=== PATIENT | male | born 1990 | race African-American/Black ===

== ENCOUNTER 2017-02-25 08:29 | Emergency (ER) | payer SELFPAY ==
[~2017-02-25] VITALS: Ht 167.6 cm; Wt 95.3 kg
[~2017-02-25 08:29] MED LIST: HYDR-971 PO; ONDA4TAB10 SL; SULF1TAB24 PO; TRAM-48 PO
[2017-02-25 08:30] VITALS: BP 148/93
[2017-02-25] MEDS ORDERED: NAPR500T8 PO (08:50)
[2017-02-25] MEDS ORDERED: CYCL10TA2 PO (08:50)
[2017-02-25] MEDS ORDERED: METH4TAB2 PO (08:50)
--- NOTE | 2017-02-25 08:50 | PHYS DOC ---
Past Medical History Past Medical History: Asthma Additional Past Medical Histor: GASTRITIS Past Surgical History: Other Additional Past Surgical Histo: ABDOMINAL BIOPSY Alcohol Use: Occasionally Drug Use: Marijuana Adult General Chief Complaint Chief Complaint: Neck Pain HPI HPI Patient is a 26 year old male with history of asthma who presents today with moderate right lateral neck pain radiating to his shoulder that began this morning when he got up. Patient denies any trauma. Patient states the pain is worse when he moves his neck to the right side. Review of Systems Review of Systems Constitutional: Denies fever or chills [] Eyes: Denies change in visual acuity, redness, or eye pain [] HENT: Denies nasal congestion or sore throat [] Respiratory: Denies cough or shortness of breath [] Cardiovascular: No additional information not addressed in HPI [] GI: Denies abdominal pain, nausea, vomiting, bloody stools or diarrhea [] : Denies dysuria or hematuria [] Musculoskeletal: right lateral neck pain Integument: Denies rash or skin lesions [] Neurologic: Denies headache, focal weakness or sensory changes [] Endocrine: Denies polyuria or polydipsia [] Allergies Allergies Allergies Coded Allergies Type Severity Reaction Last Updated Verified azithromycin Allergy Mild dizziness 06/20/15 No Physical Exam Physical Exam Constitutional: Well developed, well nourished, no acute distress, non-toxic appearance. [] HENT: Normocephalic, atraumatic, bilateral external ears normal, oropharynx moist, no oral exudates, nose normal. [] Eyes: PERRLA, EOMI, conjunctiva normal, no discharge. [] Neck: Normal range of motion, mild paraspinal muscle tenderness to the right lateral cervical spine, no midline cervical spine tenderness, supple, no stridor. [] Cardiovascular:Heart rate regular rhythm, no murmur [] Lungs & Thorax: Bilateral breath sounds clear to auscultation [] Abdomen: Bowel sounds normal, soft, no tenderness, no masses, no pulsatile masses. [] Skin: Warm, dry, no erythema, no rash. [] Back: No tenderness, no CVA tenderness. [] Extremities: No tenderness, no cyanosis, no clubbing, ROM intact, no edema. [] Neurologic: Alert and oriented X 3, normal motor function, normal sensory function, no focal deficits noted. [] Psychologic: Affect normal, judgement normal, mood normal. [] Current Patient Data Vital Signs Vital Signs Date Time Temp Pulse Resp B/P (MAP) Pulse Ox O2 Delivery O2 Flow Rate FiO2 02/25/17 08:30 98.3 83 16 98 Room Air 98.3 EKG EKG [] Radiology/Procedures Radiology/Procedures [] Course & Med Decision Making Course & Med Decision Making Pertinent Labs and Imaging studies reviewed. (See chart for details) Patient is in the ED with symptoms consistent with torticollis. Discharged with naproxen and Flexeril and Medrol Dosepak. Provided PCP for follow-up in one to 2 weeks. Recommended heat to his neck. Dragon Disclaimer Dragon Disclaimer This electronic medical record was generated, in whole or in part, using a voice recognition dictation system. Departure Departure Impression: Primary Impression: Torticollis, acute Disposition: 01 HOME, SELF-CARE Condition: STABLE Referrals: ARNAUD HAMMOND (PCP) follow up with your doctor in one to two weeks Patient Instructions: Torticollis, Acute Additional Instructions: You were seen for torticollis which occurs when people wake up and they can not move the neck to one side due to pain. Consider applying warm packs to her neck. Take the neck through full range of motion as tolerated. Take the prescribed medicines as ordered. Follow-up with your own doctor in 1-2 weeks. Scripts Methylprednisolone (MEDROL) 4 Mg Tab.ds.pk 1 PKG PO UD, #1 PKG Prov: FERNANDO AQUINO APRN 02/25/17 Naproxen (NAPROXEN) 500 Mg Tablet.dr 1 TAB PO BID, #60 TAB 1 Refill Prov: FERNANDO AQUINO APRN 02/25/17 Cyclobenzaprine Hcl (CYCLOBENZAPRINE HCL) 10 Mg Tablet 1 TAB PO TID, #30 TAB Prov: FERNANDO AQUINO APRN 02/25/17 FERNANDO AQUINO APRN Feb 25, 2017 08:50
[2017-02-25] MEDS ORDERED: KETOROLAC TROMETHAMINE 60 MG/2 ML INJ. IM ONE (09:00)
[2017-02-25] MEDS ORDERED: diazePAM 5 MG TABLET PO ONE (09:00)
[2017-02-25] MEDS ORDERED: predniSONE 20 MG TABLET PO ONE (09:00)
== END 2017-02-25 09:00 | disposition home or self-care (01) ==
LOC: ER 08:29
DX: M43.6 Torticollis (principal); J45.909 Unspecified asthma, uncomplicated; F12.10 Cannabis abuse, uncomplicated; Z88.1 Allergy status to other antibiotic agents
CPT/HCPCS: 96372; 99283; J1885; J7512

== ENCOUNTER 2017-08-18 17:00 | Emergency (ER) | payer SELFPAY ==
[2017-08-18] MEDS: LIDOCAINE 1% PF 2 ML VIAL. INJ (19:05)
[2017-08-18] MEDS: cefTRIAXone IM 1 GM VIAL IM (19:05)
== END 2017-08-18 19:00 | disposition home or self-care (01) ==
LOC: ER 17:00
DX: L02.412 Cutaneous abscess of left axilla (principal); L02.411 Cutaneous abscess of right axilla; F12.10 Cannabis abuse, uncomplicated; J45.909 Unspecified asthma, uncomplicated; Z88.1 Allergy status to other antibiotic agents
CPT/HCPCS: 10061; 96372; 99284-25; J0696

== ENCOUNTER 2017-12-07 15:26 | Emergency (ER) | payer SELFPAY ==
[2017-12-07] MEDS: HYDROcodone/APAP 5/325MG 1 TAB TABLET PO (16:00)
== END 2017-12-07 16:49 | disposition home or self-care (01) ==
LOC: ER 16:49
DX: L02.416 Cutaneous abscess of left lower limb (principal); J45.909 Unspecified asthma, uncomplicated; F12.10 Cannabis abuse, uncomplicated; Z79.891 Long term (current) use of opiate analgesic; Z88.1 Allergy status to other antibiotic agents
CPT/HCPCS: 99283

== ENCOUNTER 2018-03-20 13:23 | Emergency (ER) | payer OTHER ==
[~2018-03-20] VITALS: Ht 167.6 cm; Wt 96.2 kg
[~2018-03-20 13:23] MED LIST changes: +CEPH500C PO; +CYCL10TA2 PO; +IBUP-1060 PO; +METH4TAB2 PO; +NAPR500T8 PO
[2018-03-20 13:54] VITALS: BP 132/79
[2018-03-20] MEDS ORDERED: SULF1TAB24 PO (14:10)
--- NOTE | 2018-03-20 14:10 | PHYS DOC ---
Past Medical History Past Medical History: No Pertinent History, Asthma Additional Past Medical Histor: GASTRITIS Past Surgical History: Other Additional Past Surgical Histo: ABDOMINAL BIOPSY Alcohol Use: Heavy Drug Use: Marijuana Adult General Chief Complaint Chief Complaint: SKIN PROBLEM HPI HPI Patient is a 27 year old male who presents with chronic ingrown hair abscess is in bilateral axillaries. 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 Patient states that the cyst under his right armpit has been hair and draining pus 6 months. Patient denies any fevers. Patient states that he now has some right pain that hurts with movement of his arm and when he pushes on his chest and states it feels like a bruise. Patient states that the chest has been like that for the last couple days and states that he was doing some heavy lifting couple days ago. Patient denies injury. Patient does state that his a history of asthma also and has some shortness of air when she was taking his inhaler but the inhaler didn't work. Patient rates his pain 7 out of 10. It is nonradiating. Patient states he' s been taking ibuprofen for pain and it seems to be helping. Review of Systems Review of Systems Constitutional: Denies fever or chills [] Eyes: Denies change in visual acuity, redness, or eye pain [] HENT: Denies nasal congestion or sore throat [] Respiratory: Denies cough. Slight shortness of breath. [] Cardiovascular: Reproducible chest pain on right chest that is nonradiating.[] GI: Denies abdominal pain, nausea, vomiting, bloody stools or diarrhea [] : Denies dysuria or hematuria [] Musculoskeletal: Denies back pain or joint pain [] Integument: Denies rash or skin lesions. Right axillary abscess that is draining purulent drainage x 6 months. [] Neurologic: Denies headache, focal weakness or sensory changes [] All other systems were reviewed and found to be within normal limits, except as documented in this note. Allergies Allergies Allergies Coded Allergies Type Severity Reaction Last Updated Verified azithromycin Adverse Reaction Intermediate dizziness 08/18/17 No Physical Exam Physical Exam Constitutional: Well developed, well nourished, no acute distress, non-toxic appearance. [] HENT: Normocephalic, atraumatic, bilateral external ears normal, oropharynx moist, no oral exudates, nose normal. [] Eyes: PERRLA, EOMI, conjunctiva normal, no discharge. [] Neck: Normal range of motion, no tenderness, supple, no stridor. [] Cardiovascular:Heart rate regular rhythm, no murmur. Right chest pain that is reproducible with palpation and movement of the arm. [] Lungs & Thorax: Bilateral breath sounds clear to auscultation [] Abdomen: Bowel sounds normal, soft, no tenderness, no masses, no pulsatile masses. [] Skin: Warm, dry, no erythema, no rash. Right axillary abscess that is draining purulent fluid. [] Back: No tenderness, no CVA tenderness. [] Extremities: No tenderness, no cyanosis, no clubbing, ROM intact, no edema. [] Neurologic: Alert and oriented X 3, normal motor function, normal sensory function, no focal deficits noted. [] Psychologic: Affect normal, judgement normal, mood normal. [] Current Patient Data Vital Signs Vital Signs Date Time Temp Pulse Resp B/P (MAP) Pulse Ox O2 Delivery O2 Flow Rate FiO2 03/20/18 13:54 98.7 87 14 132/79 (96) 98 Room Air 98.7 EKG EKG Sinus rhythm, no STEMI. Read by Dr Collazo[] Radiology/Procedures Radiology/Procedures Chest x ray[] Impressions: [facility] [address] [facility] [place] [address] IMAGING REPORT Signed PATIENT: MAI MAR ACCOUNT: [id number] : 1990 LOCATION: ER AGE: 27 SEX: M EXAM STATUS: REG ER ORD. PHYSICIAN: KEYONNA ROMAN APRN REASON: Chest pain PROCEDURE: CHEST PA & LATERAL CHEST PA LATERAL Clinical indications: CHEST PAIN,STARTED YESTERDAY COMPARISON: June 20, 2015. Findings: No acute lung infiltrate or pleural effusion or pulmonary edema or lung mass or pneumothorax is seen. The heart size, pulmonary vasculature, mediastinum and both la are unremarkable. The osseous structures appear intact. Impression: No acute radiographic abnormality is seen. Electronically signed by: Ken Ramirez MD (03/20/2018 2:28 PM) [facility] [place] DICTATED and SIGNED BY: KEN RAMIREZ MD DATE: 03/20/18 1427 Course & Med Decision Making Course & Med Decision Making Upon examination patient has a grape sized swollen red, tender area in right axillary. The abscess is draining Purulent fluid. Patient states that this abscess has been coming and going for the last 6 months. Patient also complains of right nonradiating chest pain that is reproducible upon palpation and movement of right arm. Patient states that it feels like a bruise. Patient states that he has recently done some heavy lifting a couple days ago in this may be from that. Patient states that he does have some shortness of air he knows to couple days ago and started taking his albuterol inhaler but doesn't seem to help. Patient is in no respiratory distress and his lungs are clear to auscultation. At chest x-ray shows no acute findings. Patient's EKG is sinus rhythm with no STEMI and read by Dr. Collazo. Patient states he just recently got back his health insurance and is given follow-up with soft sugar supervisor that he has only seen for these abscesses. Patient is given a prescription for Bactrim and states that he is going to take ibuprofen for pain. Patient to follow-up with his soft sugar supervisor soon as possible. Staff Physician Addendum: I was working in the ER during the course of this patient's visit. I was available for consultation as needed, and did provide the initial EKG interpretation, but I was not directly involved in the care of this patient. Annamarie Collazo DO Staff Physician [] Sharifa Disclaimer Dragon Disclaimer This electronic medical record was generated, in whole or in part, using a voice recognition dictation system. Departure Departure Impression: Primary Impression: Abscess Additional Impression: Abscess of axilla, right Disposition: 01 HOME, SELF-CARE Condition: STABLE Referrals: LORI RAMOS (PCP) Patient Instructions: Abscess Scripts Sulfamethoxazole/Trimethoprim (BACTRIM DS TABLET) 1 Each Tablet 1 TAB PO BID, #14 TAB Prov: KEYONNA ROMAN APRN 03/20/18 Problem Qualifiers KEYONNA ROMAN APRN Mar 20, 2018 14:10 ANNAMARIE COLLAZO DO Mar 21, 2018 06:26
--- NOTE | 2018-03-20 14:23 | EKG ---
[facility] [address] [place] [address] Test Date: 2018-03-20 Test Time: 14:19:10 Pat Name: MAI MAR Department: Room: Gender: [employer]: : 1990 Requested By: KEYONNA ROMAN Order Number: [id number] Reading MD: Axel Hunt MD Measurements Intervals Star Rate: 80 P: 0 SC: 110 QRS: 10 QRSD: 136 T: 16 QT: 380 QTc: 441 Interpretive Statements SINUS RHYTHM RBBB Electronically Signed On 03-22-2018 10:03:32 CDT by Axel Hunt MD
--- NOTE | 2018-03-20 14:32 | RAD ---
CHEST PA LATERAL Clinical indications: CHEST PAIN,STARTED YESTERDAY COMPARISON: June 20, 2015. Findings: No acute lung infiltrate or pleural effusion or pulmonary edema or lung mass or pneumothorax is seen. The heart size, pulmonary vasculature, mediastinum and both la are unremarkable. The osseous structures appear intact. Impression: No acute radiographic abnormality is seen. Electronically signed by: Sin Ramirez MD (03/20/2018 2:28 PM) [facility] [place]
== END 2018-03-20 14:46 | disposition home or self-care (01) ==
LOC: ER 13:23
DX: L02.412 Cutaneous abscess of left axilla (principal); L02.411 Cutaneous abscess of right axilla; R07.89 Other chest pain; R06.02 Shortness of breath; F10.20 Alcohol dependence, uncomplicated; J45.909 Unspecified asthma, uncomplicated; Y90.9 Presence of alcohol in blood, level not specified; Z88.1 Allergy status to other antibiotic agents
CPT/HCPCS: 71046; 93005; 99284-25

== ENCOUNTER 2019-06-17 15:52 | Emergency (ER) | payer OTHER ==
[~2019-06-17] VITALS: Ht 167.6 cm; Wt 90.7 kg
[~2019-06-17 15:52] MED LIST changes: +DOCU100C28 PO; +HYDR-3164 PO; -HYDR-971 PO; +HYDR30CR61 TP
[2019-06-17 16:55] VITALS: BP 130/86
--- NOTE | 2019-06-17 17:01 | PHYS DOC ---
Past Medical History Past Medical History: Asthma Additional Past Medical Histor: GASTRITIS Past Surgical History: Other Additional Past Surgical Histo: ABDOMINAL BIOPSY Alcohol Use: Heavy Drug Use: Marijuana Adult General Chief Complaint Chief Complaint: Neck Pain HPI HPI Patient is a 29 year old male patient who presents to the ED today complaining of mild chronic upper neck and mid back pain as well as mild right forehead pain that began this morning. Patient denies any trauma. He states the pain in the neck is worse on range of motion. He states he has an appointment with his own PCP next week on Thursday. He states he cannot wait until then to get some help w ith his pain. Denies any photophobia, denies any nausea, vomiting. Review of Systems Review of Systems Constitutional: Denies fever or chills [] Eyes: Denies change in visual acuity, redness, or eye pain [] HENT: Denies nasal congestion or sore throat [] Respiratory: Denies cough or shortness of breath [] Cardiovascular: No additional information not addressed in HPI [] GI: Denies abdominal pain, nausea, vomiting, bloody stools or diarrhea [] : Denies dysuria or hematuria [] Musculoskeletal: Reports neck and mid back pain-chronic Integument: Denies rash or skin lesions [] Neurologic: Reports headache, denies focal weakness or sensory changes [] All other systems were reviewed and found to be within normal limits, except as documented in this note. Allergies Allergies Allergies Coded Allergies Type Severity Reaction Last Updated Verified azithromycin Adverse Reaction Intermediate dizziness 08/18/17 No Physical Exam Physical Exam Constitutional: Well developed, well nourished, no acute distress, non-toxic appearance. [] HENT: Normocephalic, atraumatic, bilateral external ears normal, oropharynx moist, no oral exudates, nose normal. [] Eyes: PERRLA, EOMI, conjunctiva normal, no discharge. [] Neck: Normal range of motion, no tenderness, supple, no stridor. [] Cardiovascular:Heart rate regular rhythm, no murmur [] Lungs & Thorax: Bilateral breath sounds clear to auscultation [] Abdomen: Bowel sounds normal, soft, no tenderness, no masses, no pulsatile masses. [] Skin: Warm, dry, no erythema, no rash. [] Back: No tenderness, no CVA tenderness. [] Extremities: No tenderness, no cyanosis, no clubbing, ROM intact, no edema. [] Neurologic: Alert and oriented X 3, normal motor function, normal sensory function, no focal deficits noted. Cranial nerves II through XII intact Psychologic: Affect normal, judgement normal, mood normal. [] Current Patient Data Vital Signs Vital Signs Date Time Temp Pulse Resp B/P (MAP) Pulse Ox O2 Delivery O2 Flow Rate FiO2 06/17/19 16:55 98.5 80 16 130/86 (101) 98 Room Air 98.5 EKG EKG [] Radiology/Procedures Radiology/Procedures [] Course & Med Decision Making Course & Med Decision Making Pertinent Labs and Imaging studies reviewed. (See chart for details) This is a 29-year-old male patient presented to the ED today with neck pain and upper back pain chronic in nature as well as a headache. Patient's neurological exam is intact. Was discharged to home. He has an appointment with his own doctor next week. Dragon Disclaimer Dragon Disclaimer This electronic medical record was generated, in whole or in part, using a voice recognition dictation system. Departure Departure Impression: Primary Impression: Chronic neck pain Additional Impressions: Headache Back pain Disposition: HOME, SELF-CARE Condition: STABLE Referrals: ARNAUD HAMMOND (PCP) follow up next week Patient Instructions: Back Pain, Adult, [id number], Headache, FAQs Additional Instructions: You were evaluated in the emergency room for headache, neck pain and back pain. Take the prescribed medications as ordered. Follow-up with your doctor next week as scheduled Scripts Diclofenac Sodium (DICLOFENAC SODIUM) 50 Mg Tablet. 1 TAB PO BID, #20 TAB 0 Refills Prov: FERNANDO AQUINO APRN 06/17/19 Hydrocodone/Apap 5-325 (NORCO 5-325 TABLET) 1 Each Tablet 1 TAB PO Q6HRS, #12 TAB Prov: FERNANDO AQUINO APRN 06/17/19 Cyclobenzaprine Hcl (CYCLOBENZAPRINE HCL) 10 Mg Tablet 1 TAB PO TID, #30 TAB Prov: FERNANDO AQUINO APRN 06/17/19 Methylprednisolone (MEDROL) 4 Mg Tab.ds.pk 1 PKG PO UD, #1 PKG Prov: FERNANDO AQUINO APRN 06/17/19 Problem Qualifiers Additional Impressions: Headache Headache type: unspecified Headache chronicity pattern: unspecified p attern Intractability: not intractable Qualified Codes: R51 - Headache Back pain Back pain location: thoracic back pain Chronicity: chronic Back pain l aterality: bilateral Qualified Codes: M54.6 - Pain in thoracic spine; G89.29 - Other chronic pain FERNANDO AQUINO APRN Jun 17, 2019 17:01
[2019-06-17] MEDS ORDERED: METH4TAB2 PO (17:09)
[2019-06-17] MEDS ORDERED: DICL50TA4 PO (17:09)
[2019-06-17] MEDS ORDERED: CYCL10TA2 PO (17:09)
[2019-06-17] MEDS ORDERED: HYDR-3164 PO (17:09)
== END 2019-06-17 17:24 | disposition home or self-care (01) ==
LOC: ER 15:52
DX: G89.29 Other chronic pain (principal); M54.2 Cervicalgia; M54.6 Pain in thoracic spine; R51 Headache; J45.909 Unspecified asthma, uncomplicated; F10.20 Alcohol dependence, uncomplicated; Y90.9 Presence of alcohol in blood, level not specified; Z88.1 Allergy status to other antibiotic agents
CPT/HCPCS: 99283